=== PATIENT | female | born 1955 | race Caucasian/White ===

== ENCOUNTER 2018-01-19 11:02 | Emergency (ER) | payer OTHER ==
[~2018-01-19] VITALS: Ht 149.9 cm; Wt 61.2 kg
[2018-01-19 11:12] VITALS: BP 170/90
--- NOTE | 2018-01-19 11:22 | NUR ---
PT SENT TO [facility]
--- NOTE | 2018-01-19 11:40 | NUR ---
PT AMBULATES TO BED 9
--- NOTE | 2018-01-19 11:44 | NUR ---
NAMIBIAN SPEAKING ONLY PT BIB DAUGHTER WITH C/O NECK SHOULDER AND BACK PAIN S/P FINDING LUMPS GROWING ON THOSE REGIONS X 22 DAYS. DENIES CP/SOB, N/V/D, FEVERS. 09/04 PAIN HX---HTN MEDS--AMLODIPINE
--- NOTE | 2018-01-19 11:55 | NUR ---
PT AND DAUGHTER NOTIFIED DR GUTIERREZ WILL SEE THE PT, NO ACUTE DISTRESS NOTED AT THIS TIME, WILL CONTINUE TO MONITOR
[2018-01-19 12:51] LABS: BASOPHILS % (AUTO) 0.5 % (0.0-2.0); EOSINOPHILS # (AUTO) 0.1 K/uL (0-0.4); EOSINOPHILS % (AUTO) 1.7 % (0.0-4.0); HEMATOCRIT 38.8 % (36-48); LYMPHOCYTES # (AUTO) 2.3 K/uL (2.5-16.5); LYMPHOCYTES % (AUTO) 37.4 % (20.5-51.1); MEAN CORPUSCULAR HEMOGLOBIN 29 pg (27-31); MEAN CORPUSCULAR HGB CONC 33 g/dL (33-37); MEAN CORPUSCULAR VOLUME 87.4 fL (80-94); MONOCYTES # (AUTO) 0.4 K/uL (0.8-1.0); MONOCYTES % (AUTO) 6.4 % (1.7-9.3); NEUTROPHILS # (AUTO) 3.4 K/uL (1.8-7.7); PLATELET COUNT (AUTO) 292 K/uL (140-450); RED BLOOD CELL COUNT(AUTO) 4.44 MIL/uL (4.20-5.40); RED CELL DISTRIBUTION WIDTH 13.4 % (11.6-13.7); WHITE BLOOD COUNT (AUTO) 6.2 K/uL (4.8-10.8)
[2018-01-19 12:58] LABS: BILIRUBIN,URINE NEGATIVE (NEGATIVE); COLOR,URINE YELLOW (YELLOW); LEUKOCYTE ESTERASE ,URINE NEGATIVE (NEGATIVE); NITRITE, URINE NEGATIVE (NEGATIVE); PH,URINE 6.5 (5.0-9.0); UGLUCOSE NEGATIVE (NEGATIVE)
--- NOTE | 2018-01-19 13:12 | NUR ---
PATIENT TAKEN TO CT WITH [facility]AMON VIA [facility]AR[facility].
[2018-01-19 13:16] LABS: APPEARANCE,URINE CLEAR (CLEAR)
[2018-01-19 13:17] LABS: BLOOD, URINE TRACE (NEGATIVE); RBC,URINE 0-5 (RARE) /HPF (0-5); WBC,URINE 0-5 (RARE) /HPF (0-5)
[2018-01-19 13:20] LABS: ALBUMIN 3.4 g/dL (3.4-5.0); ANION GAP 10.3 (8-16); CARBON DIOXIDE 30.7 mmol/L (21-32); CREATININE 0.6 mg/dL (0.6-1.3); TOTAL BILIRUBIN 0.2 mg/dL (0.0-1.0)
--- NOTE | 2018-01-19 13:34 | NUR ---
PATIENT RETURN FROM CT.
[2018-01-19 14:57] VITALS: BP 142/83
--- NOTE | 2018-01-19 14:57 | NUR ---
Patient discharged with v/s stable. Written and verbal after care instructions given and explained. Patient alert, oriented and verbalized understanding of instructions. Ambulatory with steady gait. All questions addressed prior to discharge by Dr Orellana. ID band removed. Patient advised to follow up with PMD. Rx of Naprosyn given. Patient educated on indication of medication including possible reaction and side effects by Dr orellana. Opportunity to ask questions provided and answered by Dr orellana.
== END 2018-01-19 14:57 | disposition home or self-care (01) ==
LOC: MED 11:02
DX: S13.9XXA Sprain of joints and ligaments of unspecified parts of neck, initial encounter (principal); I10 Essential (primary) hypertension; X58.XXXA Exposure to other specified factors, initial encounter; Y93.89 Activity, other specified; Y92.89 Other specified places as the place of occurrence of the external cause; Y99.8 Other external cause status
CPT/HCPCS: 36415; 70490; 71250; 80053; 81001; 85025; 99284